=== PATIENT | male | born 1990 | race Caucasian/White ===

== ENCOUNTER → 2025-07-30 09:58 | Outpatient (BNVA) | payer SELFPAY | PROVIDERS: Visit Provider Clinical Nurse Specialist Adult Health | DX: S92.351A Displaced fracture of fifth metatarsal bone, right foot, initial encounter for closed fracture (principal); M21.611 Bunion of right foot; X58.XXXA Exposure to other specified factors, initial encounter | CPT/HCPCS: 73630 ==